=== PATIENT | female | born 1970 | race African-American/Black ===

== ENCOUNTER 2016-12-13 18:06 | Emergency (ER) | payer SELFPAY ==
[~2016-12-13] VITALS: Ht 175.3 cm; Wt 100.2 kg
[~2016-12-13 18:06] MED LIST: AMOXICILLIN500 MG PO; BIRTHCONTROL; FLEXERIL PO; HYDROCHLOROT12.5 MG PO; LORTAB 7.5 PO; NAPROSYN500 MG PO; NO HOME MEDS; ROBITUSSIN AC10 ML PO; TRI-SPRINTEC PO; TYLENOL325 M1 RE
[2016-12-13] MEDS ORDERED: HYDROCHLOROT12.5 M1 PO (18:31)
[2016-12-13] MEDS ORDERED: NAPROSYN500 MG PO (19:08)
[2016-12-13 19:15] VITALS: BP 139/84
== END 2016-12-13 19:15 | disposition home or self-care (01) | DRG 563 ==
LOC: ED 18:06
DX: S63.91XA Sprain of unspecified part of right wrist and hand, initial encounter (principal); M19.041 Primary osteoarthritis, right hand; M79.641 Pain in right hand

== ENCOUNTER 2021-03-06 07:40 | Emergency (ER) | payer SELFPAY ==
[~2021-03-06] VITALS: Ht 175.3 cm; Wt 105.0 kg
[~2021-03-06 07:40] MED LIST changes: +HYDROCHLOROT12.5 M1 PO
[2021-03-06] MEDS ORDERED: DIFLUCAN150 MG PO (08:30)
[2021-03-06 08:34] VITALS: BP 120/72
== END 2021-03-06 08:47 | disposition home or self-care (01) | DRG 607 ==
LOC: ED 07:40
DX: B37.2 Candidiasis of skin and nail (principal)